=== PATIENT | male | born 1995 | race Caucasian/White ===

== ENCOUNTER 2018-11-23 12:06 | Outpatient (CLI) | payer OTHER ==
--- NOTE | 2018-11-23 14:07 | MRI ---
MRI Lower Ext Jt Lt WO Con History: 86.002a injury of left Achilles tendon Comparison: None. Findings: There is a defect along the medial posterior soft tissues superior to the skin surface thro ugh the Achilles tendon with a perforation as well as rupture of the plantaris tendon. There is a gap in the craniocaudal dimension of the Achilles tendon approximately 1.5 cm in craniocaudad dimensi on. There is also a craniocaudad 1.5 cm gap in the plantaris tendon. Abnormal myositis extends 3 medial into the lateral muscle. There is also a small perforation of the posterior lateral margin of the Achilles tendon. This occurs approximately 11 cm from the calcaneal insertion. There is superficial edema along the superficial investing fascia of the flexor tendons. The AITFL, P ITFL, ATFL, CFL are intact. No evidence for osteomyelitis. Impression: 1. Transversely oriented defect in the skin soft tissues from medial to lateral 12 cm proximal to the calcaneal insertion involving a segment of the medial Achilles tendon, central raphe, and lateral margin of the Achilles tendon along with the plantaris tendon. Overall the transverse dimension of th e tendon involved is approximately 25% and there is a 1.5 cm craniocaudal gap. 2. Myositis of the soleus. 3. Rupture of the plantaris with a 1.5 cm gap craniocaudal gap. 4. No evidence for osteomyelitis.
== END 2018-11-23 12:07 | disposition home or self-care (01) ==
LOC: SCSMRI 12:06
PROVIDERS: ATTEND Orthopaedic Surgery
DX: S86.002A Unspecified injury of left Achilles tendon, initial encounter (principal); M60.862 Other myositis, left lower leg; S86.812A Strain of other muscle(s) and tendon(s) at lower leg level, left leg, initial encounter

== ENCOUNTER 2018-12-07 09:35 | Inpatient (IN) | payer OTHER ==
[2018-12-06 12:45] VITALS: BMI 27.1
[2018-12-07 10:19] LABS: #Eosinphils 0.1 thou/uL (0.0-0.7); #Lymphocytes 1.4 thou/uL (1.20-3.40); #Monocytes 0.3 thou/uL (0.11-0.59); %Basophils 0.8 % (0.0-1.0); %Eosinophils 2.1 % (0.0-10.0); %Lymphocytes 29.4 % (21.0-51.0); %Monocytes 5.6 % (0.0-10.0); %Neutrophils 62.1 % (42.0-75.0); Hemoglobin 15.4 g/dL (14.0-18.0); Mean Corpuscular HGB CONC 33.2 g/dL (32.0-36.0); Mean Corpuscular Hemoglobin 30.9 pg (27.0-31.0); Mean Corpuscular Volume 93.1 fL (78.0-98.0); Platelet Count 208 thou/uL (130-400); RBC Distribution Width 11.9 % (11.5-14.5); Red Blood Cell (RBC) Count 4.99 mill/uL (4.70-6.10); White Blood Cell (WBC) Count 4.8 thou/uL (4.8-10.8)
[2018-12-07] MEDS ORDERED: PROPOFOL 200 MG/20 ML VIAL ONE (10:23)
[2018-12-07] MEDS ORDERED: Ondansetron PF 4 MG/2 ML Vial ONE (10:23)
[2018-12-07] MEDS ORDERED: Lidocaine 1% PF 5 ML VIAL ONE (10:23)
[2018-12-07] MEDS ORDERED: Dexamethasone 20 MG/5 ML VIAL ONE (10:23)
[2018-12-07] MEDS ORDERED: Ketorolac Tromethamine 30 MG/ML VIAL ONE (10:23)
[2018-12-07] MEDS ORDERED: Midazolam HCl 2 mg/2 ml Vial ONE (10:46)
[2018-12-07] MEDS ORDERED: Fentanyl 100 MCG/2 ML VIAL ONE ×4 (12:26→14:23)
[2018-12-07] MEDS ORDERED: cefTRIAXone\\ROCEPHIN 1 GM VIAL ONE (13:11)
[2018-12-07] MEDS ORDERED: Fentanyl 100 MCG/2 ML VIAL SLOW IVP PRN (13:42)
[2018-12-07] MEDS ORDERED: Ondansetron PF 4 MG/2 ML Vial IV PRN (13:42)
[2018-12-07] MEDS ORDERED: Promethazine HCl 25 MG/ML VIAL IM PRN (13:42)
[2018-12-07] MEDS ORDERED: Ketorolac Tromethamine 30 MG/ML VIAL IVP PRN (13:47)
[2018-12-07] MEDS ORDERED: Meperidine HCl/PF 25 MG/ML VIAL ONE (13:47)
[2018-12-07] MEDS: cefTRIAXone\\ROCEPHIN 2 GM in Sodium Chloride 0.9% 100 ML IVPB SCH (15:37)
[2018-12-07] MEDS: Sodium Chloride 0.9% 100 ML IV SCH ×6 (16:53→23:55)
[2018-12-07] MEDS ORDERED: TETANUS AND DIPHTHERIA TOX/PF 0.5 ML DISP.SYRIN IM SCH (17:00)
[2018-12-07] MEDS: HYDROcodone/Acetaminophen 5/325 mg Tablet PO PRN ×2 (18:30→22:33)
[2018-12-07] MEDS: Aspirin 81 mg Enteric Coated Tablet PO SCH (20:08)
[2018-12-07] MEDS: Doxycycline 100 MG CAP PO SCH (20:08)
[2018-12-07] MEDS ORDERED: Vancomycin HCl 1.25 GM in Sodium Chloride 0.9% 250 ML 300 ML IVPB SCH (21:00)
--- NOTE | 2018-12-08 01:48 | CON ---
DATE OF CONSULTATION: 12/07/2018 REASON FOR CONSULTATION: Stingray accident with persistent wound inflammatory changes. HISTORY OF PRESENT ILLNESS: A 23-year-old with no past medical history, who sustained a stingray puncture to the left ankle. About a month before, he was seen at the local emergency room in [place], was given conservative management and oral antimicrobial therapy. The wound persisted and he eventually was evaluated by Dr. Black. An MRI demonstrated a transversely oriented defect in the skin and soft tissues, myositis rupture of the plantaris tendon with a gap but no osteomyelitis. There was a 1.3 cm craniocaudal gap noted. The patient was admitted and I have not yet been able to review the operative report by Dr. Black. He otherwise denies headaches, visual symptoms, sore throat, odynophagia, dysphagia, no cough or sputum production, no chest pain, no abdominal pain or diarrhea. No genitourinary symptoms. No other joint symptoms. No neurological symptoms. PAST MEDICAL HISTORY: Otherwise negative. ALLERGIES: NO ALLERGY HISTORY. CURRENT MEDICATIONS: Include ceftriaxone and doxycycline p.r.n. medications. FAMILY HISTORY: Noncontributory. SOCIAL HISTORY: Nonsmoker. No drug use. PHYSICAL EXAMINATION: VITAL SIGNS: Essentially normal findings except for mild elevation of systolic blood pressure. SKIN: Shows the gap in the left ankle with a fresh appearing base and some erythema surrounding it. No lymphadenopathy. HEENT: Normal. LUNGS: Clear. HEART: S1, S2, regular rate. ABDOMEN: Soft, no organomegaly, no bladder distention. GENITOURINARY: No genital abnormalities. EXTREMITIES: Pulses are excellent in lower extremities. NEUROLOGIC: Nonfocal. LABORATORY DATA: White cell count 4.8, hemoglobin 15.4, normal platelets. CRP was less than 0.5. We have two samples from tissue and swab from the area for cultures. ASSESSMENT: Otherwise normal young man with a stingray accident about a month before. No obvious foreign object left in the wound site, but with persistence of inflammatory changes, evidence of a gap in the Achilles tendon. DISCUSSION: Differential diagnosis includes a superimposed infection by usual skin bacteria or an underlying opportunistic infection following the accident caused by brackish water or marine water type of bacteria including Mycobacterium marinum or Vibrio. Continue Rocephin. Add vancomycin and doxycycline. Wait for culture results and then determine further management accordingly. Job ID: [id number]
[2018-12-08] MEDS: HYDROcodone/Acetaminophen 5/325 mg Tablet PO PRN ×3 (06:45→20:10)
--- NOTE | 2018-12-08 08:44 | OP ---
DATE OF PROCEDURE: 12/07/2018 PREOPERATIVE DIAGNOSES: 1. Left stingray injury. 2. Partial Achilles injury. PROCEDURES PERFORMED: 1. Irrigation and debridement of stingray wound. 2. Application of wound VAC. GLOBE MOUNTER: None. ANESTHESIOLOGIST: Babita Wu MD/Lobito Kwon MD ANESTHESIA: The patient received a LMA. ESTIMATED BLOOD LOSS: 20 mL. TOURNIQUET TIME: 19 minutes at 300 mmHg. ANTIBIOTICS: Rocephin 1 g after culture sent. CULTURES: Cultures that were sent, deep culture swab sent for aerobes and anaerobes and acid-fast. The patient had a soft tissue component of his scar and Achilles sent for Gram stain culture and acid-fast. The patient's antibiotics of Rocephin were started after cultures. COMPLICATIONS: None. HISTORY OF PRESENT ILLNESS: Ruiz is a 23-year-old male, who is currently at school at [employer] was on the charity: water fishing almost five weeks ago, had a stingray injury. The patient presented to my clinic about three and half weeks after the initial injury, had received five different antibiotics. He have a scab over the wound, not completely healed the wound. He had been taken Cipro, Augmentin, Bactrim, and clindamycin. The patient had failed to completely heal it. I send the patient for an MRI to further evaluate his Achilles and plantaris as well as his wound and the ruptures plantaris and had about 20% portion of his Achilles, but no other abscess fluid collection was noted. I did a debridement at the bedside, kind of trying to clean out the necrotic tissue to create healing. The patient came back roughly a week later, still continued to have an unhealed wound. Therefore, I discussed with him and taken to the operating room for an I and D of the wound. Deep cultures, placing a wound VAC to help with sealing this wound shut. I discussed with the patient the risks and benefits of surgery, pain, scar, bleeding, infection, damage to vital structures, decreased range of motion, need for further surgeries into soft tissue coverage, complications with antibiotics, need for long-term IV antibiotics. The patient understood the risks and elected to proceed. DESCRIPTION OF PROCEDURE: Time-out was performed designating the patient's left lower extremity as the operative site, based on site, consents, and marking. After the time-out, the patient had tourniquet applied. Made dissection down to the patient's wound, which was approximately about 2.4 x 18 mm across. I excised a rim of 1 cm of skin around the wound. I made Z-plasty proximally and distally, proximally moving towards the tendon posteriorly and distally moving away. I came down to the fascia, I brought the tourniquet up for the dissection portion of the case, came down and followed the entrance path of the stinger and to the patient 's Achilles. I cleaned off any scar and soft tissue. I stayed away from the neurovascular bundle. I did not see the plantaris upon my evaluation and did not completely dissected out. I took the tissue of the tendon to be sent off for culture, curetted off and cleaned off the skin to help with the bleeding edge from potential necrosis. I washed the wound with 3 L of heated saline. I probed looking for any potential foreign body, which was not there. After completion of my idea, I put one more liter through the tourniquet down, controlled all bleeding. There was not any excessive bleeding. We then placed a white foam patch for the VAC over the tendinous portion, then followed by a black wound VAC sponge. Wound VAC was applied. The patient will be admitted. Cultures will be followed. We then consulted Dr. Santana for Infectious Disease. We will start him on Rocephin and doxycycline. The patient will be followed up in-house and potentially discharged next week with or without wound VAC. Job ID: [id number] MTDD
[2018-12-08] MEDS: Sodium Chloride 0.9% 100 ML IV SCH ×2 (08:47→08:48)
[2018-12-08] MEDS: Aspirin 81 mg Enteric Coated Tablet PO SCH ×2 (08:51→20:10)
[2018-12-08] MEDS: traMADol HCl 50 MG TAB PO PRN ×2 (08:51→14:58)
[2018-12-08] MEDS: Vancomycin HCl 1.25 GM in Sodium Chloride 0.9% 250 ML 250 ML IVPB SCH ×2 (08:52→20:58)
[2018-12-08] MEDS: Doxycycline 100 MG CAP PO SCH ×2 (08:52→20:10)
[2018-12-08] MEDS: Sodium Chloride 0.9% 1,000 ML IV SCH ×2 (08:58→18:03)
[2018-12-08] MEDS: cefTRIAXone\\ROCEPHIN 2 GM in Sodium Chloride 0.9% 100 ML IVPB SCH (14:50)
[2018-12-09] MEDS: traMADol HCl 50 MG TAB PO PRN (00:28)
[2018-12-09] MEDS: Sodium Chloride 0.9% 1,000 ML IV SCH ×2 (05:45→13:55)
[2018-12-09] MEDS: HYDROcodone/Acetaminophen 5/325 mg Tablet PO PRN ×4 (06:43→20:17)
[2018-12-09 08:21] LABS: Vancomycin, Trough 6.5 ug/mL
[2018-12-09] MEDS: Vancomycin HCl 1.25 GM in Sodium Chloride 0.9% 250 ML 250 ML IVPB SCH ×2 (09:25→17:46)
[2018-12-09] MEDS: Aspirin 81 mg Enteric Coated Tablet PO SCH ×2 (09:25→20:19)
[2018-12-09] MEDS: Doxycycline 100 MG CAP PO SCH ×2 (10:09→20:19)
[2018-12-09] MEDS ORDERED: Senokot 8.6 MG TAB PO SCH (12:00)
[2018-12-09] MEDS: cefTRIAXone\\ROCEPHIN 2 GM in Sodium Chloride 0.9% 100 ML IVPB SCH (13:55)
[2018-12-09] MEDS: Senokot 8.6 MG TAB PO SCH (20:19)
--- NOTE | 2018-12-09 22:59 | PRG ---
DATE OF SERVICE: 12/09/2018 SUBJECTIVE: Still with moderate pain in the left Achilles region. No respiratory symptoms. No abdominal pain or diarrhea. No vomiting. OBJECTIVE: VITAL SIGNS: His vital signs are normal. HEENT EXAM: Normal. LUNGS: Clear. HEART EXAM: Normal. ABDOMEN: Soft. EXTREMITIES: The leg is covered with dressing. LAB DATA: His lab data has not been repeated. Cultures revealed Staph aureus and enterococcus. ASSESSMENT AND DISCUSSION: Stingray accident with persistent of wound with pain status post incision and drainage with partial Achilles tendon compromise. We will continue IV antimicrobial therapy waiting on the final results of the cultures to determine if he is going to need IV or oral antimicrobial therapy for discharge planning. Hopefully, we will be able to discharge tomorrow depending on results of the susceptibility studies, the duration of therapy should not be more than 2 or 3 weeks. Job ID: [id number]
[2018-12-10] MEDS: traMADol HCl 50 MG TAB PO PRN ×2 (00:50→22:47)
[2018-12-10] MEDS: Vancomycin HCl 1.25 GM in Sodium Chloride 0.9% 250 ML 250 ML IVPB SCH ×3 (00:50→16:38)
[2018-12-10] MEDS: Sodium Chloride 0.9% 1,000 ML IV SCH ×3 (01:16→21:09)
[2018-12-10] MEDS: HYDROcodone/Acetaminophen 5/325 mg Tablet PO PRN ×3 (06:38→18:31)
[2018-12-10] MEDS: Senokot 8.6 MG TAB PO SCH ×2 (08:56→21:06)
[2018-12-10] MEDS: Aspirin 81 mg Enteric Coated Tablet PO SCH ×2 (08:56→21:06)
[2018-12-10] MEDS: Doxycycline 100 MG CAP PO SCH ×2 (08:56→21:06)
[2018-12-10 09:09] LABS: Vancomycin, Trough 14.7 ug/mL
[2018-12-10] MEDS: cefTRIAXone\\ROCEPHIN 2 GM in Sodium Chloride 0.9% 100 ML IVPB SCH (13:41)
[2018-12-11] MEDS: Vancomycin HCl 1.25 GM in Sodium Chloride 0.9% 250 ML 250 ML IVPB SCH ×2 (01:52→09:11)
[2018-12-11] MEDS: HYDROcodone/Acetaminophen 5/325 mg Tablet PO PRN ×3 (03:44→14:26)
[2018-12-11] MEDS: Sodium Chloride 0.9% 1,000 ML IV SCH (06:51)
[2018-12-11] MEDS: Aspirin 81 mg Enteric Coated Tablet PO SCH (07:57)
[2018-12-11] MEDS: Senokot 8.6 MG TAB PO SCH (07:57)
[2018-12-11 09:33] LABS: Vancomycin, Trough 15.4 ug/mL
[2018-12-11] MEDS: Doxycycline 100 MG CAP PO SCH (09:44)
--- NOTE | 2018-12-11 10:21 | PRG ---
DATE OF SERVICE: 12/11/2018 SUBJECTIVE: Holdne is a 23-year-old male, who is status post incision and drainage, washout of his left foot. He is now postop day 4 and doing relatively well. Cultures demonstrated a presumptive Corynebacterium and a Staph aureus with possible Enterococcus. I believe he may very well be treated as an outpatient with oral antibiotics to include Augmentin and doxycycline. PHYSICAL EXAMINATION: His VAC is intact. He is neurovascularly intact in the digits. Full excursion and he is comfortable. IMPRESSION: Left foot atypical infection with a mixed bacterium secondary to stingray injury. PLAN: I will go ahead and provide him with a written prescription for Augmentin and doxycycline in anticipation of discharge after his wound VAC is changed to home vacuum. Job ID: [id number]
[2018-12-11 11:16] VITALS: TEMP 98.1
[2018-12-11] MEDS: cefTRIAXone\\ROCEPHIN 2 GM in Sodium Chloride 0.9% 100 ML IVPB SCH (14:30)
[2018-12-11 15:37] VITALS: BP 120/75
== END 2018-12-11 16:12 | disposition home or self-care (01) | DRG 909 ==
LOC: SDC 09:35 → EDSTATUS 14:03 → SJJU 15:10
PROVIDERS: ADMIT Orthopaedic Surgery; ATTEND Orthopaedic Surgery
PROC: 0LBP0ZZ Excision of Left Lower Leg Tendon, Open Approach (ICD-10-PCS; principal; 2018-12-07)
DX: S86.002A Unspecified injury of left Achilles tendon, initial encounter (principal); W56.51XA Bitten by other fish, initial encounter
CPT/HCPCS: 36415; 80202; 85025; 85652; 86140; 87070; 87076; 87077; 87116; 87186; 87205; 87206; J0696; J2175; J2250; J3010; J3370; J3490; J7050

== ENCOUNTER 2018-12-12 09:52 | Outpatient (CLI) | payer OTHER ==
[2018-12-12] MEDS ORDERED: Sodium Chloride 0.9% 15 ML NEB ONE (11:11)
[2018-12-12] MEDS ORDERED: Lidocaine 2% PF 100 mg/5 ml Syringe ONE (11:11)
== END 2018-12-12 09:53 | disposition home or self-care (01) ==
LOC: WCC 09:52
PROVIDERS: ATTEND Family Medicine
DX: T81.89XD Other complications of procedures, not elsewhere classified, subsequent encounter (principal)
CPT/HCPCS: 97605; A4218; J2001

== ENCOUNTER 2018-12-15 14:49 | Outpatient (CLI) | payer OTHER ==
[2018-12-15] MEDS ORDERED: Lidocaine 4% Topical Sol 50 ML BOT ONE (15:00)
[2018-12-15] MEDS ORDERED: Sodium Chloride 0.9% 15 ML NEB ONE (15:00)
== END 2018-12-15 14:50 | disposition home or self-care (01) ==
LOC: WCC 14:49
PROVIDERS: ATTEND Family Medicine
DX: T81.89XD Other complications of procedures, not elsewhere classified, subsequent encounter (principal)
CPT/HCPCS: 97605; A4218

== ENCOUNTER 2018-12-19 11:00 | Outpatient (CLI) | payer OTHER ==
[2018-12-19] MEDS ORDERED: Lidocaine 4% Topical Sol 50 ML BOT ONE (18:00)
[2018-12-19] MEDS ORDERED: Sodium Chloride 0.9% 15 ML NEB ONE (18:00)
== END 2018-12-19 11:01 | disposition home or self-care (01) ==
LOC: WCC 11:00
PROVIDERS: ATTEND Family Medicine
DX: T81.89XD Other complications of procedures, not elsewhere classified, subsequent encounter (principal)
CPT/HCPCS: 97605; A4218

== ENCOUNTER 2018-12-22 11:05 | Outpatient (CLI) | payer OTHER | END 2018-12-22 11:06 | disposition home or self-care (01) | LOC: WCC 11:05 | PROVIDERS: ATTEND Family Medicine | DX: T81.89XD Other complications of procedures, not elsewhere classified, subsequent encounter (principal) ==

== ENCOUNTER 2018-12-27 10:00 | Outpatient (CLI) | payer OTHER ==
--- NOTE | 2018-12-27 17:13 | HP ---
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 Upon discharge from [facility], the patient was referred to the Wound Center for assistance with dressing changes of the wound VAC. The patient states that at [place], he stepped on a stingray. He states that for the wound of his left lower leg, he was seen in Urgent Care immediately after the injury. He states that over the ensuing month, he had been placed on five different p.o. antibiotics without healing of the wound. Eventually, the patient was seen by Orthopedic Surgery and the wound debrided in the office. When the wound still failed to heal, the patient was taken to the operating room as described above. PAST MEDICAL HISTORY: Negative for any chronic medical conditions. PAST SURGICAL HISTORY: Irrigation and debridement of stingray wound on 12/07/2018 as per HPI. MEDICATIONS: Doxycycline. ALLERGIES: NO KNOWN DIAGNOSED ALLERGIES. SOCIAL HISTORY: The patient denies any history of tobacco or EtOH use. FAMILY HISTORY: Family history is negative for diabetes mellitus or coronary artery disease. PHYSICAL EXAMINATION: VITAL SIGNS: Temperature 98.1, pulse 81, respirations are 16, and blood pressure 121/65. GENERAL: A 23-year-old gentleman sitting on chair in examination room, in no acute distress. HEENT: Normocephalic and atraumatic. NECK: No nuchal rigidity. CHEST: Clear to auscultation. CV: Regular rate and rhythm. ABDOMEN: Soft. EXTREMITIES: A wound of the left medial lower leg is present, which measures approximately 1.5 x 2.7 cm. Granulation tissue is present within the wound margins. Necrotic and nonviable tissue present within the wound margins was debrided with an excisional full-thickness debridement with the use of a curette. No purulent drainage is associated with the wound. No cellulitis of the left lower leg is appreciated. No maceration of the skin of the periwound is noted. A dorsalis pedis pulse is palpable on the left. [id number] edema of the left foot and lower leg is present on exam today. NEUROLOGIC: Grossly nonfocal. ASSESSMENT AND PLAN: Wound of left medial lower leg as described above. MRI obtained on 11/23/2018 prior to surgery, revealed injury to the left Achilles tendon and rupture of the plantaris tendon. The patient has completed a course of negative pressure therapy. Dressing changes of Medihoney, 4x4s, Kerlix, and an Orestes bandage will be initiated today. These dressing changes are to be performed on a daily basis after cleansing and irrigation. The patient is to continue p.o. antibiotics as previously prescribed. The patient states that he will continue to perform his own dressing changes. I will see Mr. Kapoor again in 1 week. The patient understands and is in agreement with the preceding treatment plan. Job ID: [id number]
== END 2018-12-27 10:01 | disposition home or self-care (01) ==
LOC: WCC 10:00
PROVIDERS: ATTEND Family Medicine
DX: T81.89XD Other complications of procedures, not elsewhere classified, subsequent encounter (principal)

== ENCOUNTER 2019-01-03 11:13 | Outpatient (CLI) | payer OTHER ==
[2019-01-03] MEDS ORDERED: Sodium Chloride 0.9% 15 ML NEB ONE (12:00)
[2019-01-03] MEDS ORDERED: Lidocaine 2% 11 ML SYR ONE (12:00)
--- NOTE | 2019-01-03 16:57 | PRG ---
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 Negative pressure therapy was initiated intraoperatively. Upon discharge from [facility], the patient was referred to the Wound Center for assistance with dressing changes of the wound VAC. The patient stated that at [place], he stepped on a stingray. He stated that for the wound of his left lower leg, he was seen in Urgent Care immediately after the injury. He stated that over the ensuing month, he had been placed on five different p.o. antibiotics without healing of the wound. Eventually, the patient was seen by Orthopedic Surgery and the wound debrided in the office. When the wound still failed to heal, the patient was taken to the operating room as described above. PHYSICAL EXAMINATION: VITAL SIGNS: Temperature 97.8, pulse 70, respirations 17, blood pressure 119/67. EXTREMITIES: A wound of the left medial lower leg is present, which measures approximately 1.4 x 1.4 cm. The dimensions of the wound at the time of the patient's last visit were approximately 1.5 x 2.7 cm. Granulation tissue is present within the wound margins. Necrotic and nonviable tissue present within the wound margins was debrided with an excisional full-thickness debridement with the use of a curette. No purulent drainage is associated with the wound. No erythema of the skin surrounding the wound is present. No maceration of the skin of the periwound is noted. Less edema of the left foot and lower leg is present on exam today than at the time of the patient's last visit. ASSESSMENT AND PLAN: Wound of left medial lower leg as described above. MRI obtained on 11/23/2018, prior to surgery revealed injury to the left Achilles tendon and rupture of the plantaris tendon. The patient has completed a course of negative pressure therapy. Dressing changes of Medihoney, 4x4s, Kerlix, and an Orestes bandage will be continued on a daily basis after cleansing and irrigation. The patient will continue to perform his own dressing changes. I will see Mr. Kapoor again in 1 week. Job ID: [id number]
== END 2019-01-03 11:14 | disposition home or self-care (01) ==
LOC: WCC 11:13
PROVIDERS: ATTEND Family Medicine
DX: T81.89XD Other complications of procedures, not elsewhere classified, subsequent encounter (principal)
CPT/HCPCS: 11042

== ENCOUNTER 2019-01-10 11:12 | Outpatient (CLI) | payer OTHER ==
--- NOTE | 2019-01-10 12:03 | PRG ---
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 Negative pressure therapy was initiated intraoperatively. Upon discharge from [facility], the patient was referred to the Wound Center for assistance with dressing changes of the wound VAC. The patient stated that at [place], he stepped on a stingray. He stated that for the wound of his left lower leg, he was seen in Urgent Care immediately after the injury. He stated that over the ensuing month, he had been placed on 5 different p.o. antibiotics without healing of the wound. Eventually, the patient was seen by Orthopedic Surgery and the wound debrided in the office. When the wound still failed to heal, the patient was taken to the operating room as described above. OBJECTIVE: VITAL SIGNS: Temperature 97.7, pulse 74, respirations 17, and blood pressure 127/80. EXTREMITIES: A wound of the left medial lower leg is present which measures approximately 1.0 x 0.8 cm. The dimensions of the wound at the time of the patient's last visit were approximately 1.4 x 1.4 cm. Granulation tissue is present within the wound margins. Necrotic and nonviable tissue present within the wound margins was debrided with an excisional full-thickness debridement with the use of a curette. No purulent drainage is associated with the wound. No erythema of the skin surrounding the wound is present. No maceration of the skin of the periwound is noted. Again, less edema of the left foot and lower leg is present on exam today than at the time of the patient's last visit. ASSESSMENT AND PLAN: Wound of left medial lower leg as described above. MRI obtained on 11/23/2018 prior to surgery revealed injury to the left Achilles tendon and rupture of the plantaris tendon. The patient has completed a course of negative pressure therapy, dressing changes of Medihoney, 4x4s, Kerlix, and an Orestes bandage will be continued on a daily basis after cleansing and irrigation. The patient will continue to perform his own dressing changes. I will see Mr. Kapoor again in 1 week if his wound is still present at this time. Job ID: [id number]
[2019-01-10] MEDS ORDERED: Sodium Chloride 0.9% 15 ML NEB ONE (18:00)
[2019-01-10] MEDS ORDERED: Lidocaine 2% PF 5 ML VIAL ONE (18:00)
== END 2019-01-10 11:13 | disposition home or self-care (01) ==
LOC: WCC 11:12
PROVIDERS: ATTEND Family Medicine
DX: T81.89XD Other complications of procedures, not elsewhere classified, subsequent encounter (principal)
CPT/HCPCS: 11042; A4218; J2001